=== PATIENT | female | born 1975 | race Caucasian/White ===

== ENCOUNTER 2017-02-23 09:48 | Emergency (ER) | payer OTHER ==
[~2017-02-23] VITALS: Ht 172.7 cm; Wt 115.0 kg
[2017-02-23] MEDS ORDERED: SODIUM CHLORIDE 0.9% 1,000 ML IV ONE (10:16)
[2017-02-23] MEDS ORDERED: SODIUM CHLORIDE FLUSH 10ML SYR IVF ONE (10:30)
[2017-02-23] MEDS ORDERED: SODIUM CHLORIDE 0.9% 1,000ML IVBOLUS ONE (10:30)
[2017-02-23] MEDS ORDERED: MORPHINE SULFATE 4 MG/ML, 1ML IVPush PRN (10:30)
[2017-02-23] MEDS ORDERED: ONDANSETRON 2MG/ML, 2ML IVPush ONE (10:30)
[2017-02-23] MEDS ORDERED: ONDANSETRON 2MG/ML, 2ML ONE (10:45)
[2017-02-23] MEDS ORDERED: MORPHINE SULFATE 4 MG/ML, 1ML ONE (10:45)
[2017-02-23 10:46] LABS: HEMATOCRIT 48.5 % (34.6-47.8); HEMOGLOBIN 16.4 g/dL (11.7-16.4); WHITE BLOOD COUNT 7.6 x10^3/uL (3.4-10)
[2017-02-23 10:55] LABS: ASPARTATE AMINO TRANSFERASE 18 U/L (15-37); BLOOD UREA NITROGEN 11 mg/dL (7-18)
[2017-02-23] MEDS ORDERED: SERT25TA PO (11:20)
[2017-02-23] MEDS ORDERED: OMEP-110 PO (11:21)
[2017-02-23] MEDS ORDERED: OMNIPAQUE 350 MG/ML, 100ML BOTTLE ONE (11:59)
[2017-02-23] MEDS ORDERED: KETOROLAC 30 MG/1 ML IVPush ONE (12:30)
[2017-02-23] MEDS ORDERED: KETOROLAC 30 MG/1 ML ONE (12:58)
[2017-02-23 13:05] VITALS: BP 116/70
== END 2017-02-23 13:08 | disposition home or self-care (01) ==
LOC: ED 13:02
DX: N83.201 Unspecified ovarian cyst, right side (principal); R10.31 Right lower quadrant pain
CPT/HCPCS: 36415; 74177; 80053; 81003; 83690; 84703; 85025; 96361; 96374; 96375; 99285; J1885; J2405; J7030; Q9967

== ENCOUNTER 2017-12-21 18:13 | Inpatient (IN) | payer OTHER ==
[~2017-12-21] VITALS: Ht 172.7 cm; Wt 103.2 kg
[~2017-12-21 18:13] MED LIST: OMEP-110 PO; SERT25TA PO
[2017-12-21] MEDS ORDERED: SERT100T PO (18:36)
[2017-12-21] MEDS ORDERED: ADAPEX PO (18:36)
[2017-12-21 18:58] LABS: BASOPHILS # (AUTO) 0.01 x10^3/uL (0-0.1); BASOPHILS % (AUTO) 0 % (0-1); EOSINOPHILS % (AUTO) 0 % (1-7); LYMPHOCYTES # (AUTO) 1.23 x10^3/uL (1-3.4); LYMPHOCYTES % (AUTO) 9 % (22-44); MD NO; MEAN CORPUSCULAR HEMOGLOBIN 32.6 pg (27.0-34.8); MEAN CORPUSCULAR HGB CONC 34.6 g/dL (32.4-35.8); MEAN CORPUSCULAR VOLUME 94.1 fL (80-100); MEAN PLATELET VOLUME 8.3 fL (7.4-10.4); MONOCYTES % (AUTO) 1 % (2-9); NEUTROPHILS # (AUTO) 12.09 x10^3/uL (1.8-6.8); NEUTROPHILS % (AUTO) 90 % (42-75); PLATELET COUNT 342 x10^3/uL (130-400); RED BLOOD COUNT 4.88 x10^6/uL (3.82-5.3); RED CELL DISTRIBUTION WIDTH 13.2 % (9.6-15.2)
[2017-12-21] MEDS ORDERED: SODIUM CHLORIDE 0.9% 1,000ML IVBOLUS ONE ×2 (19:00→20:00)
[2017-12-21] MEDS ORDERED: SODIUM CHLORIDE FLUSH 10ML SYR IVF ONE (19:00)
[2017-12-21 19:07] LABS: ALBUMIN 3.6 g/dL (3.4-5.0); ANION GAP 14 mmol/L (5-15); CALCIUM 8.7 mg/dL (8.5-10.1); CHLORIDE 108 mmol/L (98-107)
[2017-12-21 19:10] LABS: ALANINE AMINOTRANSFERASE 34 U/L (12-78); ALKALINE PHOSPHATASE 85 U/L (45-117); BILIRUBIN,TOTAL 0.6 mg/dL (0.2-1.0); CREATININE 1.21 mg/dL (0.55-1.02); TROPONIN I < 0.015 ng/mL (0.000-0.045)
[2017-12-21 19:14] LABS: INTERNATIONAL NORMALIZED RATIO 1.01 (0.93-1.1); PROTHROMBIN TIME 10.5 Seconds (9.6-11.5); SALICYLATE LEVEL < 1.7 mg/dL (2.8-20.0)
[2017-12-21 19:16] LABS: ACETAMINOPHEN < 2 mcg/mL (10-30)
[2017-12-21 19:56] LABS: MICROSCOPIC INDICATED
[2017-12-21 20:01] LABS: AMPHETAMINE SCREEN, URINE Negative (Negative); BARBITURATE SCREEN, URINE Negative (Negative); BENZODIAZEPINE SCREEN, URINE Positive (Negative); CANNABINOID SCREEN, URINE Negative (Negative); COCAINE SCREEN, URINE Negative (Negative); METHADONE SCREEN, URINE Negative (Negative); OPIATE SCREEN, URINE Negative (Negative)
[2017-12-21 20:07] LABS: CULTURE INDICATED? YES
[2017-12-21] MEDS ORDERED: ONDANSETRON 2MG/ML, 2ML ONE (20:44)
[2017-12-21] MEDS ORDERED: FAMOTIDINE 20 MG/2 ML ONE (20:54)
[2017-12-21] MEDS ORDERED: FAMOTIDINE 20 MG/2 ML IVPush ONE (21:00)
[2017-12-21] MEDS ORDERED: ALUMINUM/MAG/SIMETHICONE 30 ML UDC ONE (22:19)
[2017-12-21] MEDS ORDERED: POTASSIUM CHLORIDE 20 MEQ TAB.ER.PRT ONE (22:20)
[2017-12-21] MEDS ORDERED: POTASSIUM CHLORIDE 20 MEQ TAB.ER.PRT PO ONE (22:30)
[2017-12-21] MEDS ORDERED: ALUMINUM/MAG/SIMETHICONE 30 ML UDC PO PRN (22:30)
[2017-12-21] MEDS ORDERED: BISACODYL 10 MG SUPP PR PRN (23:00)
[2017-12-21] MEDS ORDERED: POLYETHYLENE GLYCOL 17 GM PACKET PO PRN (23:00)
[2017-12-21] MEDS ORDERED: ONDANSETRON 2MG/ML, 2ML IVPush PRN (23:00)
[2017-12-21 23:16] VITALS: BP 136/86
[2017-12-21] MEDS: NS + 20MEQ KCL 1,000 ML IV SCH (23:57)
[2017-12-22 02:00] VITALS: BP 116/74
[2017-12-22 03:10] LABS: BASOPHILS # (AUTO) 0.05 x10^3/uL (0-0.1); BASOPHILS % (AUTO) 1 % (0-1); EOSINOPHILS # (AUTO) 0.01 x10^3/uL (0-0.4); EOSINOPHILS % (AUTO) 0 % (1-7); LYMPHOCYTES # (AUTO) 1.83 x10^3/uL (1-3.4); LYMPHOCYTES % (AUTO) 18 % (22-44); MD NO; MEAN CORPUSCULAR HEMOGLOBIN 31.6 pg (27.0-34.8); MEAN CORPUSCULAR HGB CONC 33.3 g/dL (32.4-35.8); MEAN CORPUSCULAR VOLUME 94.9 fL (80-100); MEAN PLATELET VOLUME 7.9 fL (7.4-10.4); MONOCYTES # (AUTO) 0.63 x10^3/uL (0.2-0.8); MONOCYTES % (AUTO) 6 % (2-9); NEUTROPHILS % (AUTO) 75 % (42-75); PLATELET COUNT 274 x10^3/uL (130-400); RED BLOOD COUNT 4.32 x10^6/uL (3.82-5.3); RED CELL DISTRIBUTION WIDTH 13.4 % (9.6-15.2)
[2017-12-22 03:20] LABS: ALANINE AMINOTRANSFERASE 28 U/L (12-78); ALBUMIN 3.1 g/dL (3.4-5.0); ANION GAP 7 mmol/L (5-15); CALCIUM 7.5 mg/dL (8.5-10.1); CHLORIDE 113 mmol/L (98-107); CREATININE 0.72 mg/dL (0.55-1.02)
[2017-12-22 03:22] LABS: ALKALINE PHOSPHATASE 71 U/L (45-117); BILIRUBIN,TOTAL 0.4 mg/dL (0.2-1.0); TOTAL PROTEIN 5.8 g/dL (6.4-8.2)
[2017-12-22 07:22] VITALS: BP 113/65
[2017-12-22] MEDS: NS + 20MEQ KCL 1,000 ML IV SCH (08:23)
[2017-12-22] MEDS: SENNA/DOCUSATE TABLET PO SCH (08:24)
[2017-12-22] MEDS: IBUPROFEN 200 MG TABLET PO PRN ×2 (10:20→21:46)
[2017-12-22 16:42] VITALS: BP 136/87
[2017-12-22 20:00] VITALS: BP 110/71
[2017-12-23] MEDS: NS + 20MEQ KCL 1,000 ML IV SCH (01:20)
[2017-12-23 02:00] VITALS: BP 114/76
[2017-12-23 05:44] LABS: BASOPHILS # (AUTO) 0.04 x10^3/uL (0-0.1); BASOPHILS % (AUTO) 1 % (0-1); EOSINOPHILS # (AUTO) 0.05 x10^3/uL (0-0.4); EOSINOPHILS % (AUTO) 1 % (1-7); LYMPHOCYTES # (AUTO) 2.18 x10^3/uL (1-3.4); LYMPHOCYTES % (AUTO) 31 % (22-44); MD NO; MEAN CORPUSCULAR HEMOGLOBIN 31.7 pg (27.0-34.8); MEAN CORPUSCULAR HGB CONC 33.1 g/dL (32.4-35.8); MEAN CORPUSCULAR VOLUME 95.8 fL (80-100); MONOCYTES # (AUTO) 0.53 x10^3/uL (0.2-0.8); MONOCYTES % (AUTO) 7 % (2-9); NEUTROPHILS # (AUTO) 4.35 x10^3/uL (1.8-6.8); NEUTROPHILS % (AUTO) 61 % (42-75); PLATELET COUNT 248 x10^3/uL (130-400); RED BLOOD COUNT 4.24 x10^6/uL (3.82-5.3); RED CELL DISTRIBUTION WIDTH 13.8 % (9.6-15.2)
[2017-12-23 05:47] LABS: ANION GAP 7 mmol/L (5-15); CHLORIDE 112 mmol/L (98-107); CREATININE 0.62 mg/dL (0.55-1.02)
[2017-12-23 06:57] VITALS: BP 126/81
[2017-12-23 08:30] LABS: TROPONIN I < 0.015 ng/mL (0.000-0.045)
[2017-12-23] MEDS: SENNA/DOCUSATE TABLET PO SCH (09:00)
[2017-12-23 13:24] VITALS: BP 109/72
[2017-12-23] MEDS ORDERED: LORazepam 1MG TABLET PO PRN (15:30)
[2017-12-23 16:00] VITALS: BP 112/70
[2017-12-23] MEDS: IBUPROFEN 200 MG TABLET PO PRN (16:08)
== END 2017-12-23 18:56 | DRG 917 ==
LOC: ED 21:18 → EDIP 22:59 → 4WST 23:08 → 2N 12-23 15:40
PROVIDERS: ADMIT Internal Medicine; ATTEND Internal Medicine
PROC: 0T9B70Z Drainage of Bladder with Drainage Device, Via Natural or Artificial Opening (ICD-10-PCS; principal; 2017-12-21)
DX: T43.222A Poisoning by selective serotonin reuptake inhibitors, intentional self-harm, initial encounter (principal); G93.41 Metabolic encephalopathy; E87.2 Acidosis; D72.829 Elevated white blood cell count, unspecified; E66.9 Obesity, unspecified; E87.6 Hypokalemia; F32.9 Major depressive disorder, single episode, unspecified; F41.9 Anxiety disorder, unspecified; H57.04 Mydriasis; Y92.89 Other specified places as the place of occurrence of the external cause; Z68.34 Body mass index [BMI] 34.0-34.9, adult
CPT/HCPCS: 36415; 99291; S0028; 70450; 71045; 80048; 80053; 80307; 80329; 81001; 82962; 83605; 83690; 84443; 84484; 84703; 85025; 85379; 85610; 85730; 87086; 93005; 96361; 96374; J2405; J3480; G0480; J7030

== ENCOUNTER 2017-12-28 16:42 | Emergency (ER) | payer OTHER ==
[~2017-12-28] VITALS: Ht 172.7 cm; Wt 99.0 kg
[~2017-12-28 16:42] MED LIST changes: +ADAPEX PO; +SERT100T PO
[2017-12-28] MEDS ORDERED: MORPHINE SULFATE 4 MG/ML, 1ML IVPush PRN (17:00)
[2017-12-28] MEDS ORDERED: MORPHINE SULFATE 4 MG/ML, 1ML ONE (17:07)
[2017-12-28] MEDS ORDERED: ONDANSETRON ODT 4 MG ONE (17:07)
[2017-12-28 17:25] LABS: MEAN CORPUSCULAR HEMOGLOBIN 32.8 pg (27.0-34.8); MEAN CORPUSCULAR HGB CONC 34.2 g/dL (32.4-35.8); MEAN PLATELET VOLUME 8.2 fL (7.4-10.4); PLATELET COUNT 236 x10^3/uL (130-400); RED BLOOD COUNT 4.61 x10^6/uL (3.82-5.3); RED CELL DISTRIBUTION WIDTH 13.8 % (9.6-15.2)
[2017-12-28 17:26] LABS: ALANINE AMINOTRANSFERASE 39 U/L (12-78); ALBUMIN 3.4 g/dL (3.4-5.0); ANION GAP 4 mmol/L (5-15); CALCIUM 8.6 mg/dL (8.5-10.1); CHLORIDE 105 mmol/L (98-107); CREATININE 0.84 mg/dL (0.55-1.02)
[2017-12-28 17:30] LABS: ALKALINE PHOSPHATASE 81 U/L (45-117); BILIRUBIN,TOTAL 0.2 mg/dL (0.2-1.0); TOTAL PROTEIN 6.8 g/dL (6.4-8.2)
[2017-12-28 17:36] LABS: BASOPHILS # (AUTO) 0.11 x10^3/uL (0-0.1); BASOPHILS % (AUTO) 1 % (0-1); EOSINOPHILS # (AUTO) 0.09 x10^3/uL (0-0.4); EOSINOPHILS % (AUTO) 1 % (1-7); LYMPHOCYTES # (AUTO) 2.09 x10^3/uL (1-3.4); LYMPHOCYTES % (AUTO) 22 % (22-44); MD NO; MONOCYTES # (AUTO) 0.73 x10^3/uL (0.2-0.8); MONOCYTES % (AUTO) 8 % (2-9); NEUTROPHILS # (AUTO) 6.34 x10^3/uL (1.8-6.8); NEUTROPHILS % (AUTO) 68 % (42-75)
[2017-12-28] MEDS ORDERED: ONDANSETRON ODT 4 MG PO ONE (18:00)
[2017-12-28] MEDS ORDERED: SODIUM CHLORIDE FLUSH 10ML SYR IVF ONE (18:00)
[2017-12-28 18:01] LABS: MICROSCOPIC NOT IND
[2017-12-28 18:06] LABS: CULTURE INDICATED? NO
[2017-12-28] MEDS ORDERED: TRAZ50TA18 PO (18:38)
[2017-12-28] MEDS ORDERED: OMEP20TA62 PO ×2 (18:39)
[2017-12-28] MEDS ORDERED: FLUO20CA19 PO (18:40)
[2017-12-28] MEDS ORDERED: LORA-445 PO (18:41)
[2017-12-28] MEDS ORDERED: MAGN400O7 PO (18:42)
[2017-12-28] MEDS ORDERED: GABA-827 PO (18:42)
[2017-12-28] MEDS ORDERED: ACET650S21 PO (18:43)
[2017-12-28] MEDS ORDERED: IBUP200C5 PO (18:44)
[2017-12-28] MEDS ORDERED: OMNIPAQUE 350 MG/ML, 100ML BOTTLE ONE (18:56)
[2017-12-28] MEDS ORDERED: MAGNESIUM CITRATE 300ML ORAL SOL ONE (19:27)
[2017-12-28] MEDS ORDERED: MAGNESIUM CITRATE 300ML ORAL SOL PO ONE (19:30)
[2017-12-28 19:50] VITALS: BP 123/64
== END 2017-12-28 19:53 | disposition home or self-care (01) ==
LOC: ED 18:55
DX: R10.33 Periumbilical pain (principal); R10.31 Right lower quadrant pain; R11.0 Nausea; Z90.49 Acquired absence of other specified parts of digestive tract
CPT/HCPCS: 36415; 74021; 74177; 80053; 81003; 83690; 84703; 85025; 96374; 99285; Q0162; Q9967